=== PATIENT | female | born 1935 | race Caucasian/White ===

== ENCOUNTER 2016-10-26 08:47 | Emergency (ER) | payer OTHER ==
[~2016-10-26] VITALS: Ht 177.8 cm; Wt 82.5 kg
[2016-10-26] MEDS ORDERED: LEVOTHYROXINE88 MCG PO (08:58)
[2016-10-26] MEDS ORDERED: AMLODIPINE BESYL5 MG PO (08:58)
[2016-10-26] MEDS ORDERED: LOSARTAN-HCTZ1 EAC2 PO (08:59)
[2016-10-26] MEDS ORDERED: ULTRAM50 MG PO (10:31)
[2016-10-26 11:34] VITALS: BP 147/72
== END 2016-10-26 11:34 | disposition home or self-care (01) ==
LOC: EME 08:47
DX: S20.219A Contusion of unspecified front wall of thorax, initial encounter (principal); W18.30XA Fall on same level, unspecified, initial encounter; I10 Essential (primary) hypertension
CPT/HCPCS: 71020; 99281; 99283

== ENCOUNTER 2017-09-27 17:33 | Emergency (ER) | payer OTHER ==
[~2017-09-27] VITALS: Ht 172.7 cm; Wt 77.2 kg
[~2017-09-27 17:33] MED LIST: AMLODIPINE BESYL5 MG PO; LEVOTHYROXINE88 MCG PO; LOSARTAN-HCTZ1 EAC2 PO; ULTRAM50 MG PO
[2017-09-27 19:51] LABS: HEMATOCRIT 36.1 % (36.0-46.0); HEMOGLOBIN 12.5 G/DL (11.9-15.5); MCH 32.5 PG (29.0-34.0); MCHC 34.6 G/DL (30.0-36.0); MCV 93.8 FL (83-99); RBC DIS.WIDTH-CV 12.8 % (11.8-14.6); RBC DIS.WIDTH-SD 44.3 % (39-53); RED BLOOD COUNT 3.85 M/uL (3.80-5.20); WHITE BLOOD COUNT 7.5 K/uL (4.1-10.2)
[2017-09-27 19:58] LABS: CHLORIDE 101 mEq/L (99-109); POTASSIUM 4.5 mEq/L (3.7-5.4); SODIUM 135 mEq/L (136-147)
[2017-09-27 20:00] LABS: GLUCOSE 100 mg/dL (70-99); TOTAL PROTEIN 6.6 g/dL (6.4-8.3)
[2017-09-27 20:04] LABS: ALKALINE PHOSPHATASE 73 IU/L (3-129); CREATININE 0.7 mg/dL (0.6-1.3); GFR ESTIMATE (CALCULATED) > 59 mL/min/
[2017-09-27 20:05] LABS: UREA NITROGEN (BUN) 14 mg/dL (9-23)
[2017-09-27 20:06] LABS: AST (GOT) 19 IU/L (2-34); DIRECT BILIRUBIN 0.3 mg/dL (0.0-0.3)
[2017-09-27 20:07] LABS: ALT (GPT) 13 IU/L (3-49); LIPASE 16 U/L (1.0-51.0)
[2017-09-27 20:08] LABS: TROP-I INTERPRETATION NEGATIVE; TROPONIN-I < 0.01 ng/mL (0.0-0.30)
[2017-09-27 20:36] LABS: PLAT.SUFFICIENCY ADEQUATE; PLATELET COUNT 175 K/uL (156-360)
[2017-09-27 21:31] LABS: APPEARANCE CLEAR ((CLEAR)); BILIRUBIN NEGATIVE; BLOOD NEGATIVE; COLOR YELLOW ((YELLOW)); GLUCOSE (STRIP) NEGATIVE; KETONES 5; LEUKOCYTES MODERATE; NITRITE NEGATIVE; PROTEIN (STRIP) NEGATIVE; SPECIFIC GRAVITY 1.012 (1.000-1.030); UROBILINOGEN 0.2 MG/DL (0.2-1.0)
[2017-09-27 21:38] LABS: BACTERIA RARE /HPF; EPITHELIAL CELLS RARE /HPF; MUCUS NONE SEEN /LPF; RED BLOOD CELLS 0-5 /HPF (0-5); WHITE BLOOD CELLS 20-30 /HPF (0-5)
[2017-09-27] MEDS ORDERED: KEFLEX500 MG PO (22:08)
[2017-09-27] MEDS ORDERED: ZOFRAN4 MG PO (22:08)
[2017-09-27 22:59] VITALS: BP 149/89
== END 2017-09-27 23:03 | disposition home or self-care (01) ==
LOC: EME 17:33
PROVIDERS: Emergency Medicine
DX: N30.00 Acute cystitis without hematuria (principal); K80.20 Calculus of gallbladder without cholecystitis without obstruction; I10 Essential (primary) hypertension; M32.9 Systemic lupus erythematosus, unspecified; Z86.12 Personal history of poliomyelitis; Z86.61 Personal history of infections of the central nervous system; Z88.2 Allergy status to sulfonamides; Z88.0 Allergy status to penicillin
CPT/HCPCS: 71045; 76705; 80053; 81003; 82248; 83690; 84484; 85027; 93005; 99281; 99285; J7030